=== PATIENT | female | born 1970 | race Caucasian/White ===

== ENCOUNTER 2022-10-22 23:01 | Emergency (ER) | payer MEDICAID ==
[~2022-10-22] VITALS: Ht 157.5 cm; Wt 86.0 kg
[~2022-10-22 23:01] MED LIST: AMLO-258 PO; ATEN100T92 PO
[2022-10-22 23:09] VITALS: BP 128/73
[2022-10-22 23:29] LABS: BASOPHILS % (AUTO) 0.8 % (0.0-2.0); EOSINOPHILS % (AUTO) 3.5 % (1.0-6.0); HEMATOCRIT 42.8 % (36-46); HEMOGLOBIN 14.2 g/dL (12.0-16.0); LYMPHOCYTES # (AUTO) 3.5 K/uL (1.0-4.8); LYMPHOCYTES % (AUTO) 38.1 % (22.0-44.0); MEAN CORPUSCULAR HEMOGLOBIN 30.7 pg (26.0-34.0); MEAN CORPUSCULAR HGB CONC 33.1 G/dL (31.0-37.0); MEAN CORPUSCULAR VOLUME 93 fL (80-100); MONOCYTES # (AUTO) 0.6 K/uL (0.1-1.0); NEUTROPHILS # (AUTO) 4.6 K/uL (1.8-7.7); NEUTROPHILS % (AUTO) 50.6 % (40.0-70.0); PLATELET COUNT (AUTO) 242 K/uL (150-450); RED BLOOD CELL COUNT(AUTO) 4.61 MIL/uL (4.00-5.20); RED CELL DISTRIBUTION WIDTH 13.7 % (11.5-14.5)
[2022-10-22 23:39] LABS: ANION GAP 7 mmol/L (8-16); CALCIUM, TOTAL 9.6 mg/dL (8.8-10.5); CARBON DIOXIDE 30 mmol/L (22-29); CHLORIDE 103 mmol/L (98-107); CREATININE 0.85 mg/dL (0.60-1.30); GLOMERULAR FILTR. RATE CALC > 60 mL/min (>60); GLUCOSE,RANDOM 138 mg/dL (70-110); POTASSIUM 3.5 mmol/L (3.5-5.1); SODIUM SERUM 140 mmol/L (136-145); UREA NITROGEN, BLOOD 14 mg/dL (7-18)
[2022-10-22 23:45] LABS: ALANINE AMINOTRANSFERASE 50 U/L (12-78); ALKALINE PHOSPHATASE 106 U/L (46-116); ASPARTATE AMINOTRANSFERASE 29 U/L (15-37); BILIRUBIN,TOTAL 0.5 mg/dL (0.1-1.0); TOTAL PROTEIN, SERUM 8.1 g/dL (6.4-8.2)
[2022-10-23] MEDS ORDERED: AZIT250T9 PO (03:12)
[2022-10-23] MEDS ORDERED: BENZ-39 PO (03:13)
== END 2022-10-23 03:20 | disposition home or self-care (01) ==
LOC: EMS 23:02
DX: J06.9 Acute upper respiratory infection, unspecified (principal); R05.9 Cough, unspecified; I10 Essential (primary) hypertension
CPT/HCPCS: 71045; 80053; 85025; 99284; 36415-L1; 36415-TC

== ENCOUNTER 2023-08-11 19:29 | Emergency (ER) | payer MEDICAID, OTHER ==
[~2023-08-11] VITALS: Ht 154.9 cm; Wt 86.4 kg
[~2023-08-11 19:29] MED LIST changes: +BENZ-39 PO
[2023-08-11 20:33] LABS: BASOPHILS % (AUTO) 0.2 % (0.0-2.0); EOSINOPHILS % (AUTO) 1.2 % (1.0-6.0); HEMATOCRIT 47.6 % (36-46); HEMOGLOBIN 15.6 g/dL (12.0-16.0); LYMPHOCYTES # (AUTO) 0.7 K/uL (1.0-4.8); LYMPHOCYTES % (AUTO) 5.4 % (22.0-44.0); MEAN CORPUSCULAR HEMOGLOBIN 29.9 pg (26.0-34.0); MEAN CORPUSCULAR HGB CONC 32.7 G/dL (31.0-37.0); MEAN CORPUSCULAR VOLUME 92 fL (80-100); MONOCYTES # (AUTO) 0.5 K/uL (0.1-1.0); MONOCYTES % (AUTO) 3.8 % (2.0-9.0); NEUTROPHILS # (AUTO) 11.9 K/uL (1.8-7.7); PLATELET COUNT (AUTO) 280 K/uL (150-450); RED CELL DISTRIBUTION WIDTH 14.2 % (11.5-14.5); WHITE BLOOD COUNT (AUTO) 13.3 K/uL (4.5-11.0)
[2023-08-11 20:35] LABS: NEUTROPHILS % (AUTO) 89.4 % (40.0-70.0)
[2023-08-11 20:43] LABS: ANION GAP 9 mmol/L (8-16); CALCIUM, TOTAL 9.2 mg/dL (8.8-10.5); CARBON DIOXIDE 30 mmol/L (22-29); CHLORIDE 103 mmol/L (98-107); CREATININE 0.68 mg/dL (0.60-1.30); GLOMERULAR FILTR. RATE CALC > 60 mL/min (>60); GLUCOSE,RANDOM 117 mg/dL (70-110); POTASSIUM 3.2 mmol/L (3.5-5.1); SODIUM SERUM 142 mmol/L (136-145); UREA NITROGEN, BLOOD 21 mg/dL (7-18)
[2023-08-11 20:48] LABS: ALANINE AMINOTRANSFERASE 34 U/L (12-78); ALBUMIN 3.8 g/dL (3.4-5.0); ALKALINE PHOSPHATASE 101 U/L (46-116); ASPARTATE AMINOTRANSFERASE 23 U/L (15-37); BILIRUBIN,TOTAL 0.8 mg/dL (0.1-1.0); LIPASE 58 U/L (16-77); TOTAL PROTEIN, SERUM 7.8 g/dL (6.4-8.2)
[2023-08-11 20:50] LABS: TROPONIN I-HIGH SENSITIVITY 10 ng/L (<51)
[2023-08-11 21:06] LABS: RBC MORPHOLOGY COMMENT NORMAL RBC MORPH
[2023-08-11] MEDS: ACETAMINOPHEN 500 MG TABLET PO ONE (23:22)
[2023-08-11] MEDS: KETOROLAC TROMETHAMINE 30 MG/ML VIAL IVP ONE (23:22)
[2023-08-11] MEDS: DIPHENOXYLATE/ATROP 2.5-0.025 MG TABLET PO ONE (23:22)
[2023-08-11] MEDS: ONDANSETRON HCL 4 MG/2 ML VIAL IVP ONE (23:22)
[2023-08-11] MEDS: SODIUM CHLORIDE 0.9% 1,000 ML IV ONE (23:23)
[2023-08-12] MEDS: HYDROmorphone HCL 2 MG/ML SYRINGE IVP ONE
[2023-08-12] MEDS: MAG HYDROX/ALUMINUM HYD/SIMETH ES 30 ML SUSPENSION UDCUP PO ONE
[2023-08-12] MEDS ORDERED: ACET-2080 PO (00:11)
[2023-08-12] MEDS ORDERED: ONDA-104 PO (00:11)
[2023-08-12] MEDS ORDERED: DIPH-1130 PO (00:11)
[2023-08-12] MEDS ORDERED: MAG30ORA11 PO (00:11)
[2023-08-12 01:30] VITALS: BP 124/64; PULSE 76; RESP 18; TEMP 98.3
[2023-08-12] MEDS: METOCLOPRAMIDE HCL 5 MG/ML 2 ML VIAL IVP ONE (01:44)
== END 2023-08-12 02:53 | disposition home or self-care (01) ==
LOC: EMS 19:31
DX: K52.9 Noninfective gastroenteritis and colitis, unspecified (principal); I10 Essential (primary) hypertension; Z90.49 Acquired absence of other specified parts of digestive tract
CPT/HCPCS: 99285; 74176; 96374; 96361; 96375 ×2; 80053; 83690; 84484; 85025; 36415; 93005; J1170; J1885; J2405; J7030; J2765

== ENCOUNTER 2024-06-18 01:31 | Emergency (ER) | payer OTHER ==
[~2024-06-18] VITALS: Ht 154.9 cm; Wt 86.4 kg
[~2024-06-18 01:31] MED LIST changes: +ACET-2080 PO; +DIPH-1130 PO; +MAG30ORA11 PO; +ONDA-104 PO
[2024-06-18 01:37] VITALS: BP 107/65; PULSE 87; RESP 18; TEMP 97.8; O2SAT 99
[2024-06-18] MEDS ORDERED: HYDR-4062 PO (17:10)
[2024-06-18] MEDS ORDERED: METH-659 PO (17:10)
[2024-06-18] MEDS ORDERED: IBUP-1554 PO (17:10)
== END 2024-06-18 02:51 | disposition left against medical advice (07) ==
LOC: EMS 01:31
DX: R10.9 Unspecified abdominal pain (principal); Z53.21 Procedure and treatment not carried out due to patient leaving prior to being seen by health care provider

== ENCOUNTER 2024-06-18 12:29 | Emergency (ER) | payer OTHER ==
[~2024-06-18] VITALS: Ht 160 cm; Wt 90.9 kg
[2024-06-18 12:33] VITALS: TEMP 97.9
[2024-06-18] MEDS: METHOCARBAMOL 100 MG/ML 10 ML VIAL IVP ONE (14:08)
[2024-06-18] MEDS: KETOROLAC TROMETHAMINE 30 MG/ML VIAL IVP ONE (14:08)
[2024-06-18 15:03] LABS: BASOPHILS % (AUTO) 1.2 % (0.0-2.0); EOSINOPHILS % (AUTO) 2.9 % (1.0-6.0); HEMATOCRIT 42.2 % (36-46); HEMOGLOBIN 13.8 g/dL (12.0-16.0); LYMPHOCYTES # (AUTO) 3.2 K/uL (1.0-4.8); LYMPHOCYTES % (AUTO) 39.2 % (22.0-44.0); MEAN CORPUSCULAR HEMOGLOBIN 30.1 pg (26.0-34.0); MEAN CORPUSCULAR HGB CONC 32.8 G/dL (31.0-37.0); MEAN CORPUSCULAR VOLUME 92 fL (80-100); MONOCYTES # (AUTO) 0.6 K/uL (0.1-1.0); MONOCYTES % (AUTO) 7.1 % (2.0-9.0); NEUTROPHILS % (AUTO) 49.6 % (40.0-70.0); PLATELET COUNT (AUTO) 246 K/uL (150-450); RED BLOOD CELL COUNT(AUTO) 4.59 MIL/uL (4.00-5.20); RED CELL DISTRIBUTION WIDTH 13.1 % (11.5-14.5); WHITE BLOOD COUNT (AUTO) 8.1 K/uL (4.5-11.0)
[2024-06-18 15:12] LABS: ANION GAP 3 mmol/L (8-16); CALCIUM, TOTAL 8.9 mg/dL (8.8-10.5); CARBON DIOXIDE 35 mmol/L (22-29); CHLORIDE 103 mmol/L (98-107); CREATININE 0.92 mg/dL (0.60-1.30); GLOMERULAR FILTR. RATE CALC > 60 mL/min (>60); GLUCOSE,RANDOM 104 mg/dL (70-110); POTASSIUM 3.4 mmol/L (3.5-5.1); SODIUM SERUM 141 mmol/L (136-145); UREA NITROGEN, BLOOD 13 mg/dL (7-18)
[2024-06-18 15:15] LABS: APPEARANCE,URINE CLEAR (CLEAR); BILIRUBIN,URINE NEGATIVE (NEGATIVE); COLOR,URINE LIGHT YELLOW (YELLOW); GLUCOSE, URINE (UA) NEGATIVE (NEGATIVE); KETONES,URINE NEGATIVE (NEGATIVE); LEUKOCYTE ESTERASE ,URINE NEGATIVE (NEGATIVE); NITRATE,URINE NEGATIVE (NEGATIVE); OCCULT BLOOD,URINE NEGATIVE (NEGATIVE); PH,URINE 6.5 (5.0-8.0); PROTEIN,URINE NEGATIVE (NEGATIVE); UROBILINOGEN,URINE <=1.0 mg/dL (<=1.0)
[2024-06-18 15:44] LABS: BACTERIA,URINE Rare /HPF (None Seen); RBC,URINE 0-2 /HPF (0-2); SQUAMOUS EPITHELIAL CELL,UR Rare /LPF (None Seen); WBC,URINE 0-2 /HPF (0-5)
[2024-06-18] MEDS: POTASSIUM CHLORIDE 20 MEQ ER TABLET PO ONE (16:46)
[2024-06-18] MEDS ORDERED: IBUP-1554 PO (17:10)
[2024-06-18] MEDS ORDERED: METH-659 PO (17:10)
[2024-06-18] MEDS ORDERED: HYDR-4062 PO (17:10)
[2024-06-18 17:31] VITALS: BP 131/66; PULSE 87; RESP 18; O2SAT 100
[2024-06-18] MEDS: HYDROCODONE/ACETAMINOPHEN 5-325 MG TABLET PO ONE (17:31)
== END 2024-06-18 17:38 | disposition home or self-care (01) ==
LOC: EMS 12:35
DX: S39.012A Strain of muscle, fascia and tendon of lower back, initial encounter (principal); I10 Essential (primary) hypertension; Z79.899 Other long term (current) drug therapy; X58.XXXA Exposure to other specified factors, initial encounter; Y93.89 Activity, other specified; Y92.89 Other specified places as the place of occurrence of the external cause; Y99.8 Other external cause status
CPT/HCPCS: 99284; 96374; 96375; 80048; 81001; 85025; 36415; 72100; J1885; J2800

== ENCOUNTER 2025-04-23 06:16 | Emergency (ER) | payer OTHER ==
[~2025-04-23] VITALS: Ht 152.4 cm; Wt 81.8 kg
[~2025-04-23 06:16] MED LIST changes: +HYDR-4062 PO; +IBUP-1554 PO; +METH-659 PO
[2025-04-23 06:42] VITALS: TEMP 97.9
[2025-04-23] MEDS: ACETAMINOPHEN 500 MG TABLET PO ONE (06:42)
[2025-04-23] MEDS: IBUPROFEN 600 MG TABLET PO ONE (06:42)
[2025-04-23 06:44] VITALS: BP 125/88; PULSE 85; RESP 16; O2SAT 100
[2025-04-23] MEDS ORDERED: IBUP-1492 PO (06:47)
[2025-04-23] MEDS ORDERED: ACET-3385 PO (06:47)
== END 2025-04-23 07:45 | disposition home or self-care (01) ==
LOC: EMS 06:16
DX: S93.401A Sprain of unspecified ligament of right ankle, initial encounter (principal); S83.92XA Sprain of unspecified site of left knee, initial encounter; I10 Essential (primary) hypertension; Z79.899 Other long term (current) drug therapy; W19.XXXA Unspecified fall, initial encounter; Y93.89 Activity, other specified; Y92.89 Other specified places as the place of occurrence of the external cause; Y99.8 Other external cause status
CPT/HCPCS: 99284; 73562-TC; 73610-TC; Z7502; Z7610